=== PATIENT | female | born 1990 | race Caucasian/White ===

== ENCOUNTER 2021-03-24 00:01 | Emergency (ER) | payer OTHER ==
[~2021-03-24] VITALS: Ht 167.6 cm; Wt 90.7 kg
[2021-03-24 04:00] VITALS: BP 112/62
== END 2021-03-24 04:00 | disposition home or self-care (01) ==
LOC: ER 00:01
DX: J06.9 Acute upper respiratory infection, unspecified (principal); Z20.822 Contact with and (suspected) exposure to COVID-19; R05.9 Cough, unspecified